=== PATIENT | male | born 1940 | race Caucasian/White ===

== ENCOUNTER 2023-04-04 12:32 | Emergency (ER) | payer OTHER, SELFPAY ==
[2023-04-04] VITALS (7 sets, daily range): BP systolic 103–131; BP diastolic 57–77
[2023-04-04 13:00] LABS: % Basophils 0.5 % (0-2); % Eosinophils 4.2 % (0-6); % Immature Granulocytes 0.5 % (0-0.5); % Lymphocytes 18.4 % (20.5-51.1); % Monocytes 15.1 % (1.7-9.3); % Neutrophils 61.3 % (42.2-75.2); Absolute Eosinophils 0.3 10^3/uL (0-0.7); Absolute Lymphocytes 1.5 10^3/uL (1.2-3.4); Absolute Monocytes 1.2 10^3/uL (0.1-0.6); Hematocrit 42.1 % (39.0-52.0); Hemoglobin 14.4 g/dL (13.0-18.0); Mean Corp Hgb Conc. 34.2 g/dL (33.0-37.0); Mean Corpuscular Hgb 30.4 pg (27.0-31.0); Mean Corpuscular Volume 88.8 fL (80.0-94.0); Mean Platelet Volume 10.5 fL (7.4-10.4); Nucleated Red Blood Cells % 0 % (-); Platelet Count 214 10^3/uL (130-400); Red Blood Cell Count 4.74 10^6/uL (4.70-6.10); Red Cell Dist. Width 13.2 % (11.5-14.5); White Blood Cell Count 8.2 10^3/uL (4.8-10.8)
--- NOTE | 2023-04-04 13:07 | ED.GENMED ---
History of Present Illness
General
Chief Complaint: Abdominal Pain
Source: patient
Exam Limitations: none
Time Seen by Provider: 04/04/23 12:46
Nursing documentation reviewed up to this point in time: agreed with
Travel History
Have you had any contact with someone who has COVID-19?: No
Do you have any symptoms of coronavirus? Fever > 100 degrees, chills, cough, shortness of breath, sore throat, loss of taste or smell, muscle aches, or headache?: No
History of Present Illness
History of Present Illness:
Patient presents to ED from half-way secondary to sudden onset of diffuse abdominal pain, after having difficulty with bowel movements this morning, where he reports small amount of 'hard stool'. Patient states that he had difficult time with
bowel movements 1 week ago as well. Denies trauma. Denies fever or chills. Denies nausea or vomiting. Denies recent illness. Denies recent change in medications or diet. Abdominal pain described as crampy, diffuse, without any alleviating or
exacerbating factors. Patient's surgical history is significant for cholecystectomy.
Past History
Past History
ED Past Medical History: GERD, Hypercholesterolemia, NIDDM, Other (Biliary colic, arthritis) and Other (Lumbar DJD, spinal stenosis, sciatica)
ED Past Surgical History: Orthopedic
Social History
Tobacco: Non-smoker
Alcohol: None
Personal: Single
Living: alone
Employment: Retired
Family History
Family History: Other (Noncontributory)
Review of Systems
Review of Systems
Allergies reviewed?: Yes
Constitutional: Reports no symptoms; Denies fever
Respiratory: Reports no symptoms
Cardiac: Reports no symptoms
ABD/GI: Reports abdominal pain and constipated; Denies nausea, vomiting or diarrhea
: Reports no symptoms
Musculoskeletal: Reports no symptoms
Skin: Reports no symptoms
Neurological: Reports no symptoms
Phy Exam
Physical Exam
Physical Exam:
Physical Exam
General: mild distress, not acutely ill. afebrile
Head: nc/at. eomi
Neck: supple. no meningeal signs.
Heart: s1/s2 regular rate and rhythm, no murmur. equal radial pulses.
Lungs: no acute respiratory distress. clear bilaterally
Abdomen: normal bowel sounds. not tender. no distention
Neuro: alert and oriented. no focal neurological deficits
Skin: no rash
Psychiatric: well kept. interactive and cooperative
Extremities: no edema. no calf tenderness.
Course
Orders/Labs/Results
Orders:
Orders
04/04/23 12:51
CMP [Comprehensive Metabolic Panel] Urgent
Complete Blood Count/With Diff Urgent
04/04/23 13:07
CR Obstruct Series W/pa Chest Urgent
Comment:
Reason For Exam: abdominal pain w distention
04/04/23 13:12
0.9% Sodium Chloride 500 ml [Nss] 500 ml IV BOLUS
04/04/23 15:05
Phosphate Enema [Fleet Phosphate Enema-Adult] 135 ml .ROUTE .[facility]
Abnormal Lab Results
04/04/23
12:51
MPV 10.5 H fL
(7.4-10.4)
Absolute Monos (auto) 1.2 H 10^3/uL
(0.1-0.6)
Lymphocytes % 18.4 L %
(20.5-51.1)
Monocytes % 15.1 H %
(1.7-9.3)
BUN 29 H mg/dl
(9-20)
Creatinine 1.4 H mg/dL
(0.7-1.3)
Glucose 115 H mg/dl
(70-99)
04/04/23 12:51
04/04/23 12:51
Vital Signs
Initial and Last Documented VS:
Initial Vital Signs
Temp Pulse Resp BP Pulse Ox
97.9 F 79 18 131/77 98
04/04/23 12:35 04/04/23 12:35 04/04/23 12:35 04/04/23 12:35 04/04/23 12:35
Last Documented Vital Signs
Temp Pulse Resp BP Pulse Ox
97.9 F 79 18 104/60 96
04/04/23 12:35 04/04/23 12:35 04/04/23 12:35 04/04/23 17:00 04/04/23 17:45
MDM/Problems Addressed
MDM/Problems Addressed:
Pt given fleet enema with successful bowel movement and improvement in symptoms.
Pt states that he no longer has any abdominal pain after BM. Repeat abdominal exam: soft and nontender. As such, patient will be discharged back to [facility] with recommendation to continue bowel regimen at home, or return to ED with recurrent abdominal
pain. Pt expresses understanding at time of discharge.
*Critical Care Note
Total Time (30-74mins, 75-104mins- exclusive of procedures): Not Applicable
ED Attending Note
-
Portions of this chart may have been created with voice recognition software.� Occasional wrong word or��sound alike� substitutions may have occurred due to the inherent limitations of voice recognition software.
Discharge Plan
Departure
Patient Disposition: [facility]/SNF
Date of Disposition: 04/04/23
Time of Disposition: 16:16
Patient with high blood pressure during this ER visit?: Yes
Discharge Problem:
Abdominal pain
Instructions: Abdominal Pain
Prescriptions:
No Action
metformin 500 MG tablet
500 mg PO .BREAKFAST
acetaminophen [Acetaminophen Extra Strength] 500 MG tablet
500 mg PO TID
simvastatin 20 MG tablet
20 mg PO QPM
cholecalciferol (vitamin D3) [Vitamin D3] 400 UNITS tablet
2,000 units PO .Q48H
carvedilol 3.125 MG tablet
3.125 mg PO BID Qty: 60 0RF
lisinopril 2.5 MG tablet
2.5 mg PO DAILY Qty: 30 0RF
furosemide 40 MG tablet
40 mg PO DAILY Qty: 30 0RF
cyanocobalamin (vitamin B-12) [Vitamin B-12] 1,000 mcg Tablet
1,000 mcg PO .Q48H
Maxitrol Ointment
1 applic LEFT EYE HS
omeprazole 20 mg Capsule,Delayed Release(Dr/Ec)
20 mg PO DAILY
dorzolamide-timolol 22.3-6.8 mg/mL Drops
1 drp LEFT EYE BID
aspirin 81 mg Capsule
81 mg PO DAILY
spironolactone 25 MG tablet
12.5 mg PO DAILY
Referrals:
Heber Cota MD [Family Provider] -
Activity Restrictions/Additional Instructions:
As discussed, you are being discharged back to [facility] for continual care. Please return to ED with recurrent abdominal pain.
Interventions
Interventions:
*Risk Screen - Suicide Last Done: 04/04/23 12:35
*General Assessment Last Done: 04/04/23 12:35
*Neglect/Abuse Screening Last Done: 04/04/23 12:35
ED- Fall Risk Assessment Last Done: 04/04/23 18:18
*ED COVID-19 Vaccine History Last Done: 04/04/23 12:35
*Nursing Disposition Last Done: 04/04/23 19:52
GP-Qopgti-Vjizlzigtg Assessment Last Done: 04/04/23 12:35
Discharge Date and Time
Discharge Date/Time: 04/04/23 19:52
[2023-04-04 13:11] LABS: ALT (SGPT) 19 U/L (0-50); AST (SGOT) 26 U/L (17-59); Albumin 4.2 g/dl (3.5-5.0); Alkaline Phosphatase 81 U/L (38-126); Blood Urea Nitrogen 29 mg/dl (9-20); Calcium 9.3 mg/dl (8.4-10.2); Carbon Dioxide 23 mmol/L (22-30); Chloride 105 mmol/L (98-107); Glucose 115 mg/dl (70-99); Potassium 4.3 mmol/L (3.5-5.1); Sodium 136 mmol/L (135-145); Total Bilirubin 0.6 mg/dl (0.2-1.3); Total Protein 7.1 g/dl (6.3-8.2); eGFR 50.49
[2023-04-04] MEDS: NSS 500 IV (13:40)
== END 2023-04-04 19:52 ==
LOC: EMR 12:32
PROVIDERS: EMERGENCY PHYSICIAN Emergency Medicine; FAMILY PHYSICIAN Family Medicine
DX: R10.9 Unspecified abdominal pain (principal); K59.00 Constipation, unspecified; R03.0 Elevated blood-pressure reading, without diagnosis of hypertension
CPT/HCPCS: 99284; 74022; 80053; 85025

== ENCOUNTER → 2023-06-18 07:24 | Outpatient (REF) | payer OTHER, SELFPAY | LOC: DHCBS MAIN 07:24 | PROVIDERS: ATTENDING PHYSICIAN Internal Medicine Cardiovascular Disease; FAMILY PHYSICIAN Family Medicine | DX: I50.22 Chronic systolic (congestive) heart failure (principal) | CPT/HCPCS: 93306 ==

== ENCOUNTER 2024-06-10 17:08 | Emergency (ER) | payer OTHER, SELFPAY ==
[2024-06-10 17:19] VITALS: BP 138/80
--- NOTE | 2024-06-10 19:30 | ED.GENMED ---
History of Present Illness
General
Chief Complaint: Back Pain
Source: patient and family
Exam Limitations: none
Time Seen by Provider: 06/10/24 18:53
Nursing documentation reviewed up to this point in time: agreed with
History of Present Illness
History of Present Illness:
83-year-old male with history as documented presents to the emergency room for evaluation of back pain. Patient reports onset of symptoms when he woke up today and they have been constant. He reports pain starts in the left low back radiates
across towards the right and down his right leg. Worse with movement. No relieving factors noted. He says he has had similar symptoms from 'disc issues' in the past. He denies any falls or trauma. He denies any other symptoms including fever or
chills, dysuria, hematuria, change in urinary frequency. He denies any incontinence, saddle anesthesia, weakness or numbness in the legs. Denies any other complaints.
Past History
Past History
ED Past Medical History: GERD, Hypercholesterolemia, NIDDM, Other (Biliary colic, arthritis) and Other (Lumbar DJD, spinal stenosis, sciatica)
ED Past Surgical History: Orthopedic
Social History
Tobacco: Non-smoker
Alcohol: None
Personal: Single
Living: alone
Employment: Retired
Family History
Family History: Other (Noncontributory)
Review of Systems
Review of Systems
All Other Systems: ROS reviewed and negative except as documented in HPI and ROS
Musculoskeletal: Reports back pain
Neurological: Denies weakness or numbness
Phy Exam
Physical Exam
Physical Exam:
General: Awake, alert; no acute distress
Head: Normocephalic, atraumatic
Eyes: Conjunctiva normal
Throat: Airway intact, handling secretions
Neck: Trachea midline, supple without meningismus
Lungs: Breathing comfortably no distress
Heart: Regular rate
Abd: Soft, non distended, nontender
Back: No midline tenderness in the thoracic or lumbar spine, paraspinal tenderness bilaterally left slightly greater than right; positive straight leg raise on the right
Neuro: Cranial nerves grossly intact, speech fluid; motor and sensory intact in lower extremities
Skin: No rash in area of concerning
Extremities: No edema in extremities, warm and well-perfused
Scores
Heart Failure Risk
Heart Failure Risk Score: Not Applicable
Heart Score for Chest Pain Patients
STEMI patient?: Not applicable
Withdrawal Assessment of Alcohol
Withdrawal Assessment Completed?: Not applicable
Course
Orders/Labs/Results
Orders:
Orders
06/10/24 19:28
CT Abd/pel Without Iv Or Oral Urgent
Comment:
Reason For Exam: left flank pain
Ketorolac [Toradol] 30 mg IM NOW STA
Prednisone [Deltasone] 50 mg PO NOW STA
Vital Signs
Initial and Last Documented VS:
Initial Vital Signs
Temp Pulse Resp BP Pulse Ox
36.9 C 81 16 138/80 96
06/10/24 17:19 06/10/24 17:19 06/10/24 17:19 06/10/24 17:19 06/10/24 17:19
Last Documented Vital Signs
Temp Pulse Resp BP Pulse Ox
36.9 C 81 16 138/80 96
06/10/24 17:19 06/10/24 17:19 06/10/24 17:19 06/10/24 17:19 06/10/24 17:19
MDM/Problems Addressed
Differential Diagnosis Includes:
Sciatica, nephrolithiasis, vertebral fracture
MDM/Problems Addressed:
83-year-old male presents for evaluation of low back pain�left low back pain radiates across towards the right and down the right leg. Worse with movement. No relief factors noted. Similar symptoms from 'disc issues' in the past. Vitals and exam
as above. Given his age we will check imaging of the back to rule out vertebral fractures. Lower suspicion for nephrolithiasis based on history and exam. Will treat symptomatically with Toradol and start prednisone. Reassess after the above.
CT shows no acute abnormalities. Patient feeling better after symptomatic treatment. Stable for discharge on steroids and NSAIDs. Follow-up with PCP. Patient comfortable this plan. All questions answered.
*Radiology
Radiology exam reviewed: radiology read reviewed
*Pulse Oximetry
Patient hypoxic: no
*Critical Care Note
Total Time (30-74mins, 75-104mins- exclusive of procedures): Not Applicable
Data Reviewed
Source: patient and family
ED Attending Note
-
Portions of this chart may have been created with voice recognition software.� Occasional wrong word or��sound alike� substitutions may have occurred due to the inherent limitations of voice recognition software.
Discharge Plan
Departure
Patient Disposition: Home (Routine Discharge)
Date of Disposition: 06/10/24
Time of Disposition: 20:46
Patient with high blood pressure during this ER visit?: No
Discharge Problem:
Back pain with sciatica
Instructions: Sciatica (DC)
Prescriptions:
New
prednisone 50 mg tablet
50 mg PO DAILY Qty: 5 0RF
ibuprofen 400 mg tablet
400 mg PO Q6H PRN (Reason: Pain) Qty: 30 0RF
No Action
metformin 500 MG tablet
500 mg PO .BREAKFAST
acetaminophen [Acetaminophen Extra Strength] 500 MG tablet
500 mg PO TID
simvastatin 20 MG tablet
20 mg PO QPM
cholecalciferol (vitamin D3) [Vitamin D3] 400 UNITS tablet
2,000 units PO .Q48H
carvedilol 3.125 MG tablet
3.125 mg PO BID Qty: 60 0RF
lisinopril 2.5 MG tablet
2.5 mg PO DAILY Qty: 30 0RF
furosemide 40 MG tablet
40 mg PO DAILY Qty: 30 0RF
cyanocobalamin (vitamin B-12) [Vitamin B-12] 1,000 mcg Tablet
1,000 mcg PO .Q48H
Maxitrol Ointment
1 applic LEFT EYE HS
omeprazole 20 mg Capsule,Delayed Release(Dr/Ec)
20 mg PO DAILY
dorzolamide-timolol 22.3-6.8 mg/mL Drops
1 drp LEFT EYE BID
aspirin 81 mg Capsule
81 mg PO DAILY
spironolactone 25 MG tablet
12.5 mg PO DAILY
Referrals:
Heber Cota MD [Family Provider] - Follow up in 5-7 days
Activity Restrictions/Additional Instructions:
Thank you for visiting the Emergency Department at [facility].
1. Please schedule a follow up appointment as directed. Call first thing tomorrow morning to make an appointment.
2. If indicated, please take your medications as instructed and indicated on discharge paperwork.
3. If any of your symptoms do not improve, or persist, or become more severe within 6-12 hours, please return to the emergency department for further care.
4. Please return to the emergency department if you develop a headache, neck pain/stiffness, fever greater than 100.4F, chest pain, shortness of breath, persistent nausea, vomiting, slurred speech, difficulty walking, numbness/tingling, weakness,
signs of infection or any other symptoms that are worrisome to you.
Please call [phone] if you have any questions.
Interventions
Interventions:
*Risk Screen - Suicide Last Done: 06/10/24 17:19
*Neglect/Abuse Screening Last Done: 06/10/24 17:19
ED-Musculoskeletal Assessment Last Done: 06/10/24 19:43
Discharge Date and Time
Print Language: CONGOLESE
[2024-06-10] MEDS: TORADOL 30 MG IM (19:39)
[2024-06-10] MEDS: DELTASONE 50 MG PO (19:39)
[2024-06-10 19:43] VITALS: BMI 32.1
== END 2024-06-10 21:03 | disposition home or self-care (01) ==
LOC: EMR 17:08
PROVIDERS: EMERGENCY PHYSICIAN Emergency Medicine; FAMILY PHYSICIAN Family Medicine
DX: M54.41 Lumbago with sciatica, right side (principal); E11.9 Type 2 diabetes mellitus without complications; E78.00 Pure hypercholesterolemia, unspecified
CPT/HCPCS: 99284; 96372; 74176

== ENCOUNTER 2024-12-20 06:45 | Emergency (ER) | payer OTHER, SELFPAY ==
[2024-12-20 06:48] VITALS: BP 118/65; BMI 27.9
--- NOTE | 2024-12-20 07:14 | ED.GENMED ---
History of Present Illness
General
Chief Complaint: Musculo-Skeletal Complaint
Source: patient, records and family
Exam Limitations: none
Time Seen by Provider: 12/20/24 07:01
History of Present Illness
History of Present Illness:
84yoM with a history of CHF, hypertension, hyperlipidemia, and type 2 diabetes presenting via EMS for evaluation of left hip pain. Patient states he went to bed feeling normal last night. He woke up around 5:30 AM with pain in his left hip which
feels like he is 'about to have a muscle spasm.' He denies any trauma or inciting incident. He took a Tylenol without relief. Nephew at bedside states that patient has ongoing issues with his back and hips from a fall on ice many years ago. He
seems to have this type of pain every 4 months. He was seen in the ED in May 2024 for back pain and received IM Toradol with significant improvement. He denies any back pain currently. No paresthesias. He is otherwise asymptomatic. He
ambulates with a walker at baseline and is a resident at [facility].
Past History
Past History
ED Past Medical History: GERD, Hypercholesterolemia, NIDDM, Other (Biliary colic, arthritis) and Other (Lumbar DJD, spinal stenosis, sciatica)
ED Past Surgical History: Orthopedic
Social History
Tobacco: Non-smoker
Alcohol: None
Personal: Single
Living: alone
Employment: Retired
Family History
Family History: Other (Noncontributory)
Phy Exam
General Physical Exam
General Presentation: well appearing and no apparent distress
General Skin: warm and dry
General Habitus: normal
General Mental: alert
ENT Exam
ENT Exam: normocephalic
Pulmonary Exam
Pulmonary Exam: no respiratory distress
Neurological Exam
Neurological Exam: alert
Manjinder Coma Scale
Eye Opening: Spontaneous
Verbal Response: Oriented
Motor Response: Obeys Commands
GCS Total Score: 15
Musculoskeletal Exam
Musculoskeletal Exam: other (L hip: Excoriations/rash noted which has been present for several weeks per nephew. Joint otherwise appears normal. +Tenderness in buttock. ROM of L hip intact and does not elicit pain. No pitting edema in extremity. 2+
DP pulse.)
Skin Exam
Skin Exam: normal color and warm/dry
Psychiatric Exam
Psychiatric Exam: normal mood/affect
Course
Orders/Labs/Results
Orders:
Orders
12/20/24 07:13
Ketorolac [Toradol] 30 mg IM NOW STA
CR Femur - Left Min 2 Vw Urgent
Comment:
Reason For Exam: L hip pain
Pelvis, 1 or 2 Views CR [CR Pelvis - 1 Or 2 Views ] Urgent
Comment:
Reason For Exam: L hip pain
12/20/24 07:25
Ketorolac [Toradol] 15 mg IV NOW STA
Vital Signs
Initial and Last Documented VS:
Initial Vital Signs
Temp Pulse Resp BP Pulse Ox
98.7 F 73 14 118/65 99
12/20/24 06:48 12/20/24 06:48 12/20/24 06:48 12/20/24 06:48 12/20/24 06:48
Last Documented Vital Signs
Temp Pulse Resp BP Pulse Ox
98.7 F 75 13 118/65 99
12/20/24 06:48 12/20/24 06:50 12/20/24 06:50 12/20/24 06:48 12/20/24 07:16
MDM/Problems Addressed
Differential Diagnosis Includes:
84yoM here with atraumatic L hip pain. Ongoing issue. Woke up with pain overnight. VSS. He is well appearing in no distress. ROM of L hip is normal. LLE is neurovascularly intact. Differential diagnosis includes: Osteoarthritis, bursitis, sciatica,
referred pain, less likely fracture
Pelvic and left femur x-rays obtained which show arthritic changes without fracture. Patient was given IV Toradol and pain is significantly improved. States his pain is now 'close to zero.' Patient is stable for discharge. Recommend continued
supportive care and follow-up with orthopedics. Nephew agreeable with plan and patient was discharged in stable condition.
*Pulse Oximetry
SaO2: 99
Oxygen Mode of Delivery: Room air
Patient hypoxic: no
*Critical Care Note
Total Time (30-74mins, 75-104mins- exclusive of procedures): Not Applicable
ED Attending Note
-
Portions of this chart may have been created with voice recognition software.� Occasional wrong word or��sound alike� substitutions may have occurred due to the inherent limitations of voice recognition software.
Discharge Plan
Departure
Patient Disposition: Home (Routine Discharge)
Date of Disposition: 12/20/24
Time of Disposition: 08:14
Patient with high blood pressure during this ER visit?: No
Discharge Problem:
Left hip pain
Instructions: Hip pain in adults
Prescriptions:
No Action
metformin 500 MG tablet
500 mg PO .BREAKFAST
acetaminophen [Acetaminophen Extra Strength] 500 MG tablet
500 mg PO TID
simvastatin 20 MG tablet
20 mg PO QPM
cholecalciferol (vitamin D3) [Vitamin D3] 400 UNITS tablet
2,000 units PO .Q48H
carvedilol 3.125 MG tablet
3.125 mg PO BID Qty: 60 0RF
lisinopril 2.5 MG tablet
2.5 mg PO DAILY Qty: 30 0RF
furosemide 40 MG tablet
40 mg PO DAILY Qty: 30 0RF
cyanocobalamin (vitamin B-12) [Vitamin B-12] 1,000 mcg Tablet
1,000 mcg PO .Q48H
Maxitrol Ointment
1 applic LEFT EYE HS
omeprazole 20 mg Capsule,Delayed Release(Dr/Ec)
20 mg PO DAILY
dorzolamide-timolol 22.3-6.8 mg/mL Drops
1 drp LEFT EYE BID
aspirin 81 mg Capsule
81 mg PO DAILY
spironolactone 25 MG tablet
12.5 mg PO DAILY
prednisone 50 mg tablet
50 mg PO DAILY Qty: 5 0RF
ibuprofen 400 mg tablet
400 mg PO Q6H PRN (Reason: Pain) Qty: 30 0RF
Referrals:
Jameel Jones MD [Family Provider, Family Practice]
Activity Restrictions/Additional Instructions:
Continue using heating pad, Tylenol, and ibuprofen as needed for pain.
Please follow-up with your family doctor and orthopedics. Return to the ER with any new or worsening symptoms.
Interventions
Interventions:
*Risk Screen - Suicide Last Done: 12/20/24 06:56
*General Assessment Last Done: 12/20/24 08:36
*Neglect/Abuse Screening Last Done: 12/20/24 06:56
*ED- Fall Risk Assessment Last Done: 12/20/24 06:48
*ED COVID-19 Vaccine History Last Done: 12/20/24 06:48
*ED Influenza Vaccine History Last Done: 12/20/24 06:48
*Nursing Disposition Last Done: 12/20/24 08:36
ED-Musculoskeletal Assessment Last Done: 12/20/24 06:54
Discharge Date and Time
Discharge Date/Time: 12/20/24 08:39
Print Language: TUVALU[place]
[2024-12-20] MEDS: TORADOL 15 MG IV (07:28)
== END 2024-12-20 08:39 | disposition home or self-care (01) ==
LOC: EMR 06:45
PROVIDERS: EMERGENCY PHYSICIAN Emergency Medicine; FAMILY PHYSICIAN Family Medicine
DX: M25.552 Pain in left hip (principal); E11.9 Type 2 diabetes mellitus without complications; I11.0 Hypertensive heart disease with heart failure; I50.9 Heart failure, unspecified; E78.00 Pure hypercholesterolemia, unspecified; K21.9 Gastro-esophageal reflux disease without esophagitis; M47.816 Spondylosis without myelopathy or radiculopathy, lumbar region; M48.00 Spinal stenosis, site unspecified; M16.0 Bilateral primary osteoarthritis of hip; Z79.84 Long term (current) use of oral hypoglycemic drugs; Z79.82 Long term (current) use of aspirin
CPT/HCPCS: 99284; 96374; 72170; 73552